=== PATIENT | female | born 1985 ===

== ENCOUNTER → 2020-12-31 | Outpatient (CLI) | payer OTHER ==
[~2020-12-31] MED LIST: AZIT250 PO; BIRTH CONTROL PILLS; HYDACE5 PO; Prednisone20 MG PO
[2021-01-01 17:09] LABS: HPV 16 Negative (Negative); HPV 18 Negative (Negative); HPV OTHER HR TYPES Negative (Negative)
== END | disposition home or self-care (01) ==
LOC: LAB 14:25 → LAB SHORT 14:25
PROVIDERS: Obstetrics & Gynecology
DX: Z12.4 Encounter for screening for malignant neoplasm of cervix (principal)
CPT/HCPCS: 87624; G0123

== ENCOUNTER → 2022-07-25 | Outpatient (CLI) | payer OTHER ==
[2022-07-27 04:40] LABS: CHLAMYDIA TRACHOMATIS, NAA Negative (Negative)
== END | disposition home or self-care (01) ==
LOC: LAB SHORT 10:45
PROVIDERS: Obstetrics & Gynecology
DX: Z11.3 Encounter for screening for infections with a predominantly sexual mode of transmission (principal)
CPT/HCPCS: 87491; 87591

== ENCOUNTER 2023-01-26 14:09 | Emergency (ER) | payer MEDICAID ==
[~2023-01-26] VITALS: Ht 167.6 cm; Wt 99.8 kg
[2023-01-26 14:43] VITALS: BP 181/105
[2023-01-26] MEDS ORDERED: Xanax1 MG PO (16:22)
== END 2023-01-26 16:23 | disposition home or self-care (01) ==
LOC: ER 14:09
DX: M25.561 Pain in right knee (principal); F41.9 Anxiety disorder, unspecified; Z79.899 Other long term (current) drug therapy
CPT/HCPCS: 93971

== ENCOUNTER 2023-10-15 18:40 | Inpatient (IN) | payer OTHER ==
[~2023-10-15] VITALS: Ht 167.6 cm; Wt 119.4 kg
[2023-10-19 07:06] VITALS: BP 160/93
== END 2023-10-19 15:18 | disposition home or self-care (01) | DRG 872 ==
LOC: ER 18:40 → SURS 10-16 01:02 → MEDS 10-16 01:02 → SURS 10-16 01:04
PROVIDERS: ADMIT Internal Medicine
DX: A41.9 Sepsis, unspecified organism (principal); J36 Peritonsillar abscess; E87.6 Hypokalemia; F41.9 Anxiety disorder, unspecified; G47.30 Sleep apnea, unspecified; I10 Essential (primary) hypertension; G47.00 Insomnia, unspecified; S80.812A Abrasion, left lower leg, initial encounter; X58.XXXA Exposure to other specified factors, initial encounter; Z88.0 Allergy status to penicillin; Z88.8 Allergy status to other drugs, medicaments and biological substances; Z79.2 Long term (current) use of antibiotics; Z79.899 Other long term (current) drug therapy